=== PATIENT | female | born 1960 ===

== ENCOUNTER 2018-05-16 14:43 | Outpatient (CLI) | payer OTHER | END 2018-05-16 14:44 | disposition home or self-care (01) | LOC: C.RADH 14:43 | DX: M54.5 Low back pain (principal) ==

== ENCOUNTER 2018-08-25 09:33 | Outpatient (CLI) | payer OTHER | END 2018-08-25 09:34 | disposition home or self-care (01) | LOC: C.CTH 09:33 | DX: R10.9 Unspecified abdominal pain (principal) ==